=== PATIENT | female | born 1960 | race Caucasian/White ===

== ENCOUNTER 2022-10-12 10:14 | Day surgery (SDC) | payer OTHER ==
[~2022-10-12] VITALS: Ht 177.8 cm; Wt 78.5 kg
[~2022-10-12 10:14] MED LIST: ISOVUE-300 (IOPAMIDOL) 100 ML INFUS..BTL IV ONE; LIDOCAINE 2%, 20 ML MDV ONE; NORMAL SALINE 10 ML VIAL ONE; methylPREDNISolone ACETATE 40 MG/ML ONE
[2022-10-12] MEDS ORDERED: fentaNYL CITRATE/PF 100 MCG/2 ML AMP ONE (12:42)
[2022-10-12] MEDS ORDERED: DIPHENHYDRAMINE INJ 50 MG/ML VIAL ONE (12:43)
[2022-10-12] MEDS: MIDAZOLAM HCL 5 MG/5 ML VIAL ONE ×2 (13:44→13:47)
[2022-10-12 17:00] VITALS: BP_SYST 130
== END 2022-10-12 15:05 | disposition home or self-care (01) ==
LOC: SDS 10:14 → SMU 10:18 → SDS 15:05
PROVIDERS: ATTEND Internal Medicine
DX: M51.16 Intervertebral disc disorders with radiculopathy, lumbar region (principal); Z79.899 Other long term (current) drug therapy; Z20.822 Contact with and (suspected) exposure to COVID-19
CPT/HCPCS: 62323; 87426; 36415; J1200; J2001; J1030; J2250; J3010; Q9967; 76000